=== PATIENT | male | born 1955 | race African-American/Black ===

== ENCOUNTER 2018-04-29 15:02 | Emergency (ER) | payer MEDICARE, OTHER ==
[~2018-04-29] VITALS: Ht 162.6 cm; Wt 77.0 kg
[2018-04-29] MEDS ORDERED: FAMOTIDINE 20MG/2ML VIAL IV ONE (16:30)
[2018-04-29] MEDS ORDERED: ONDANSETRON HCL 4MG/2ML VIAL IV STA (16:30)
[2018-04-29 17:12] LABS: BASOPHILS % 0.8 % (0.0-2.0); EOSINOPHILS % 2.7 % (0.0-5.0); HEMOGLOBIN. 13.9 g/dL (14.0-18.0); LYMPHOCYTES % 30.3 % (20.0-50.0); MEAN CORPUSCULAR HEMOGLOBIN 28.9 pg (28.0-32.0); MEAN CORPUSCULAR VOLUME 85.4 fL (80.0-94.0); MEAN PLATELET VOLUME 9.2 fl (7.4-10.4); MONOCYTES % 6.6 % (2.0-8.0); NEUTROPHILS % 59.6 % (40.0-76.0); PLATELET 275 x1000/uL (130-400); RED CELL DISTRIBUTION WIDTH 14.6 % (11.6-14.6)
[2018-04-29] MEDS ORDERED: FAMOTIDINE 20MG TABLET PO ONE (17:15)
[2018-04-29] MEDS ORDERED: ONDANSETRON 4MG ODT PO ONE (17:15)
[2018-04-29] MEDS ORDERED: IBUPROFEN 600MG TABLET PO ONE (17:15)
[2018-04-29 17:16] LABS: CHLORIDE 110 mEq/L (98-107)
[2018-04-29 21:21] LABS: CLARITY URINE CLEAR (CLEAR); COLOR URINE YELLOW (YELLOW); KETONES URINE TRACE (NEGATIVE); LEUKOCYTE ESTERASE URINE NEGATIVE (NEGATIVE); NITRITE URINE NEGATIVE (NEGATIVE); OCCULT BLOOD URINE NEGATIVE (NEGATIVE); PH URINE 6.5 (4.5-8.0); PROTEIN URINE 1+ (NEGATIVE); SPECIFIC GRAVITY URINE 1.019 (1.005-1.030)
[2018-04-29 21:25] VITALS: BP 141/66
== END 2018-04-29 21:29 | disposition home or self-care (01) ==
LOC: ER 15:02
DX: R10.9 Unspecified abdominal pain (principal); R55 Syncope and collapse; I44.0 Atrioventricular block, first degree; I10 Essential (primary) hypertension; R11.0 Nausea; Z72.0 Tobacco use
CPT/HCPCS: 36415; 71045; 74176; 80053; 81003; 83690; 85025; 93005; 99285; Q0162

== ENCOUNTER 2025-06-17 12:03 | Inpatient (IN) | payer MEDICARE, MEDICAID ==
[~2025-06-17] VITALS: Ht 162.6 cm; Wt 78.0 kg
[2025-06-17 12:05] VITALS: O2SAT 98
[2025-06-17 12:46] LABS: BASOPHILS % 1.2 % (0.0-2.0); EOSINOPHILS % 2.1 % (0.0-5.0); HEMATOCRIT. 41.2 % (42.0-52.0); HEMOGLOBIN. 13.5 g/dL (14.0-18.0); LYMPHOCYTES % 44.9 % (20.0-50.0); MEAN PLATELET VOLUME 9.2 fl (7.4-10.4); MONOCYTES % 9.2 % (2.0-8.0); NEUTROPHILS % 42.6 % (40.0-76.0); PLATELET 288 x1000/uL (130-400); RED BLOOD CELL COUNT 4.77 mill/uL (4.7-6.1); RED CELL DISTRIBUTION WIDTH 15.0 % (11.6-14.6)
[2025-06-17] MEDS: SODIUM CHLORIDE 0.9% 1,000 ML IV ONE (12:58)
[2025-06-17] MEDS: ONDANSETRON HCL 4MG/2ML INJ IV ONE (12:58)
[2025-06-17] MEDS: MORPHINE SULFATE 4 MG/ML INJ (FOR IV/IM USE) IV ONE (12:58)
[2025-06-17] MEDS: LEVETIRACETAM 1000MG PREMIX 100 ML IV ONE (12:59)
[2025-06-17 13:00] LABS: CREATININE 1.1 mg/dL (0.6-1.3)
[2025-06-17 13:01] LABS: TROPONIN I HIGH SENSITIVITY 14 ng/L (3.0-53); UREA NITROGEN BLOOD < 5 mg/dL (9-23)
[2025-06-17 13:02] LABS: ASPARTATE AMINOTRANSFERASE 39 IU/L (<34)
[2025-06-17 13:03] LABS: BILIRUBIN DIRECT 0.1 mg/dL (<=3.0); BILIRUBIN TOTAL 0.3 mg/dL (0.1-1.0); INR 1.0; PROTEIN TOTAL 6.9 g/dL (6.0-8.3)
[2025-06-17] MEDS: FAMOTIDINE 20MG/2ML VIAL IV ONE (13:26)
[2025-06-17 16:34] LABS: CLARITY URINE CLEAR (CLEAR); COLOR URINE DARK YELLOW (YELLOW); GLUCOSE URINE NEGATIVE (NEGATIVE); KETONES URINE TRACE (NEGATIVE); LEUKOCYTE ESTERASE URINE NEGATIVE (NEGATIVE); NITRITE URINE NEGATIVE (NEGATIVE); OCCULT BLOOD URINE NEGATIVE (NEGATIVE); PH URINE 5.0 (4.5-8.0); PROTEIN URINE 1+ (NEGATIVE); SPECIFIC GRAVITY URINE 1.039 (1.005-1.030); UROBILINOGEN URINE 1.0 E.U./dL (0.2-1.0)
[2025-06-17 16:36] LABS: *AMPHETAMINES SCREEN URINE NEGATIVE (NEGATIVE); *BARBITURATES SCREEN URINE NEGATIVE (NEGATIVE); *BENZODIAZEPINES SCREEN URINE NEGATIVE (NEGATIVE); *COCAINE SCREEN URINE NEGATIVE (NEGATIVE); CANNABINOID URINE SCREEN PRESUMPTIVE POSITIVE (NEGATIVE); ECSTASY MDMA SCREEN URINE NEGATIVE (NEGATIVE); METHADONE URINE SCREEN NEGATIVE (NEGATIVE); OPIATES URINE SCREEN PRESUMPTIVE POSITIVE (NEGATIVE); PHENCYCLIDINE URINE SCREEN NEGATIVE (NEGATIVE)
[2025-06-17 16:40] LABS: BACTERIA URINE TRACE; RBC URINE NONE SEEN /hpf (0-2); SQUAMOUS EPITHELIAL CELL URINE FEW /lpf (RARE/1+); WBC URINE 0-2 /hpf (0-2)
[2025-06-17 16:41] LABS: MUCUS URINE 1+ /lpf (NONE/TRACE)
[2025-06-17 21:17] VITALS: BP 144/78; PULSE 69; RESP 20; TEMP 36.3; TEMP 36.3624; O2SAT 98
[2025-06-17] MEDS ORDERED: DEXTROSE 50% WATER 50ML SYRINGE IV PRN ×2 (22:45)
[2025-06-17] MEDS ORDERED: DOCUSATE SODIUM 100MG CAPSULE PO PRN (22:45)
[2025-06-17] MEDS ORDERED: ONDANSETRON HCL 4MG/2ML INJ IV PRN (22:45)
[2025-06-17] MEDS ORDERED: MAGNESIUM/ALUMINUM HYDROXIDE/SIMETHICONE 30ML UDC PO PRN (22:45)
[2025-06-17] MEDS ORDERED: POTASSIUM CHLORIDE 20MEQ TABLET SR PO PRN (22:45)
[2025-06-17] MEDS ORDERED: IPRATROPIUM/ALBUTEROL 0.5-3(2.5)MG/3ML NEB HHN PRN (23:11)
[2025-06-17] MEDS ORDERED: OLAN10TA72 PO (23:26)
[2025-06-17] MEDS ORDERED: QUET400T12 PO (23:26)
[2025-06-17] MEDS ORDERED: HYDR50TA39 PO (23:26)
[2025-06-17] MEDS ORDERED: AMLO10TA80 PO (23:26)
[2025-06-17] MEDS ORDERED: GABA-529 PO (23:26)
[2025-06-17] MEDS ORDERED: SERT25TA74 PO (23:26)
[2025-06-17] MEDS ORDERED: CLOP75TA33 PO (23:26)
[2025-06-17] MEDS ORDERED: TEMA15CA PO (23:26)
[2025-06-17] MEDS ORDERED: DIVA-73 PO (23:26)
[2025-06-17] MEDS ORDERED: INSU100V3 (23:26)
[2025-06-17] MEDS ORDERED: LEVE100023 PO (23:26)
[2025-06-17] MEDS: HYDROCODONE/ACETAMINOPHEN 5/325MG TABLET PO PRN (23:35)
[2025-06-18] VITALS: BP 98/74; PULSE 63; RESP 18; TEMP 36.3; O2SAT 99
[2025-06-18 04:00] VITALS: BP 129/81; PULSE 63; RESP 18; TEMP 36.3; O2SAT 97
[2025-06-18 07:28] LABS: TRIGLYCERIDE 112 mg/dL (0-150)
[2025-06-18 07:29] LABS: CREATININE 0.9 mg/dL (0.6-1.3); TROPONIN I HIGH SENSITIVITY 19 ng/L (3.0-53)
[2025-06-18 07:30] LABS: ASPARTATE AMINOTRANSFERASE 21 IU/L (<34); PROTEIN TOTAL 6.1 g/dL (6.0-8.3); UREA NITROGEN BLOOD < 5 mg/dL (9-23)
[2025-06-18 07:31] LABS: LDL CHOLESTEROL 143 mg/dL (5-100)
[2025-06-18 07:32] LABS: BILIRUBIN DIRECT 0.2 mg/dL (<=3.0); BILIRUBIN TOTAL 0.4 mg/dL (0.1-1.0); PHOSPHORUS 2.6 mg/dL (2.5-4.9)
[2025-06-18 07:33] LABS: T4 FREE 1.48 ng/dL (0.89-1.76)
[2025-06-18] MEDS: BLOOD SUGAR DIAGNOSTIC STRIP TEST SCH (07:40)
[2025-06-18] MEDS: INSULIN LISPRO 100 UNITS/ML SUBCUT SCH (08:10)
[2025-06-18] MEDS: LEVETIRACETAM 500MG TABLET PO SCH ×2 (09:26→13:24)
[2025-06-18] MEDS: ENOXAPARIN 40MG/0.4ML SYR SUBCUT SCH (09:27)
[2025-06-18 12:00] VITALS: BP 138/86; PULSE 79; RESP 18; TEMP 36.3; O2SAT 95
[2025-06-18] MEDS: GABAPENTIN 100MG CAPSULE PO SCH (13:00)
[2025-06-18] MEDS: CLOPIDOGREL 75MG TABLET PO SCH (13:24)
[2025-06-18] MEDS: SERTRALINE HCL 25MG TABLET PO SCH (13:24)
[2025-06-18] MEDS: HYDRALAZINE HCL 25MG TABLET PO SCH (13:24)
[2025-06-18] MEDS: DIVALPROEX SODIUM 250MG DR TABLET PO SCH (13:25)
[2025-06-18 16:00] VITALS: BP 129/74; PULSE 80; RESP 18; TEMP 36.7; O2SAT 97
[2025-06-18 20:00] VITALS: BP 160/80; PULSE 80; RESP 18; TEMP 36.8; O2SAT 99
[2025-06-18] MEDS ORDERED: MEDICATION NOT ON FORMULARY EA (Levetiracetam 1 TAB) PO SCH (21:00)
[2025-06-18] MEDS: QUETIAPINE FUMARATE 200MG TABLET PO SCH (21:15)
[2025-06-18] MEDS: OLANZAPINE 10MG TABLET PO SCH (21:15)
[2025-06-19] VITALS: BP 129/69; PULSE 96; RESP 20; TEMP 37; O2SAT 98
[2025-06-19 04:00] VITALS: BP 159/69; PULSE 77; RESP 20; TEMP 37.1; O2SAT 98
[2025-06-19 08:00] VITALS: BP 124/56; PULSE 67; RESP 18; TEMP 36.3; O2SAT 99
[2025-06-19] MEDS: AMLODIPINE 10MG TABLET PO SCH (09:39)
[2025-06-19 12:00] VITALS: BP 128/59; PULSE 60; RESP 18; TEMP 36.4; O2SAT 100
[2025-06-19 13:33] LABS: BASOPHILS % 0.8 % (0.0-2.0); EOSINOPHILS % 1.3 % (0.0-5.0); HEMATOCRIT. 43.0 % (42.0-52.0); HEMOGLOBIN. 13.9 g/dL (14.0-18.0); LYMPHOCYTES % 42.3 % (20.0-50.0); MEAN PLATELET VOLUME 8.9 fl (7.4-10.4); MONOCYTES % 9.4 % (2.0-8.0); NEUTROPHILS % 46.2 % (40.0-76.0); PLATELET 299 x1000/uL (130-400); RED BLOOD CELL COUNT 5.07 mill/uL (4.7-6.1); RED CELL DISTRIBUTION WIDTH 14.7 % (11.6-14.6)
[2025-06-19 13:50] LABS: CREATININE 1.0 mg/dL (0.6-1.3); UREA NITROGEN BLOOD 8 mg/dL (9-23)
[2025-06-19 13:51] LABS: ASPARTATE AMINOTRANSFERASE 18 IU/L (<34)
[2025-06-19 13:52] LABS: BILIRUBIN DIRECT 0.1 mg/dL (<=3.0); BILIRUBIN TOTAL 0.4 mg/dL (0.1-1.0); PHOSPHORUS 2.7 mg/dL (2.5-4.9); PROTEIN TOTAL 6.6 g/dL (6.0-8.3)
[2025-06-19 16:00] VITALS: BP 148/82; PULSE 107; RESP 20; TEMP 36.3; O2SAT 100
[2025-06-19 20:00] VITALS: BP 127/59; PULSE 80; RESP 19; TEMP 36.4; O2SAT 100
[2025-06-20] VITALS: BP 136/66; PULSE 88; RESP 19; TEMP 36.6; O2SAT 100
[2025-06-20 04:00] VITALS: BP 154/65; PULSE 76; RESP 18; TEMP 36.6
[2025-06-20] MEDS: CLONIDINE 0.1MG TABLET PO PRN (05:29)
[2025-06-20 08:17] VITALS: BP 134/68; PULSE 80; RESP 20; TEMP 36.4; O2SAT 96
[2025-06-20] MEDS: ACETAMINOPHEN 325MG TABLET PO PRN (08:53)
[2025-06-20 11:58] VITALS: BP 124/76; PULSE 108; RESP 19; TEMP 36.3; O2SAT 96
[2025-06-20 16:01] VITALS: BP 122/62; PULSE 87; RESP 19; TEMP 36.3; O2SAT 98
[2025-06-20 20:00] VITALS: BP 126/84; PULSE 79; RESP 18; TEMP 36.3; O2SAT 97
[2025-06-21] VITALS (7 sets, daily range): BP systolic 98–138; BP diastolic 50–79; PULSE 66–99; RESP 16–20; TEMP 36–36.6; O2SAT 98–99
[2025-06-21] MEDS: TEMAZEPAM 15MG CAPSULE PO PRN (21:36)
[2025-06-22] VITALS (7 sets, daily range): BP systolic 122–168; BP diastolic 47–84; PULSE 71–122; RESP 18–20; TEMP 36.4–36.6; O2SAT 97–100
== END 2025-06-22 20:24 | disposition home health service (06) | DRG 101 ==
LOC: ER 12:03 → 7WST 17:42 → EDBEDREQTM 17:55 → EDBEDREQ 17:55 → ENRESERV 20:37
PROVIDERS: ADMIT Family Medicine Adult Medicine; ATTEND Family Medicine Adult Medicine
DX: G40.909 Epilepsy, unspecified, not intractable, without status epilepticus (principal); I69.351 Hemiplegia and hemiparesis following cerebral infarction affecting right dominant side; I31.39 Other pericardial effusion (noninflammatory); I69.354 Hemiplegia and hemiparesis following cerebral infarction affecting left non-dominant side; E87.5 Hyperkalemia; I10 Essential (primary) hypertension; E11.42 Type 2 diabetes mellitus with diabetic polyneuropathy; D64.9 Anemia, unspecified; N30.90 Cystitis, unspecified without hematuria; R29.810 Facial weakness; K57.30 Diverticulosis of large intestine without perforation or abscess without bleeding; R53.81 Other malaise; G89.29 Other chronic pain; M54.50 Low back pain, unspecified; F12.90 Cannabis use, unspecified, uncomplicated; F11.90 Opioid use, unspecified, uncomplicated; Z99.3 Dependence on wheelchair
CPT/HCPCS: 36415; 71045; 74176; 80048; 80061; 80076; 80305; 80320; 81003; 82542; 82962; 83036; 83735; 83880; 84100; 84439; 84484; 85025; 93005; 93970; 97112; 97162; 97166; 97530; 97535; 99285; J1308; J1650; J1815; J1953; J2270; J2405; J7030; G0480